=== PATIENT | female | born 1990 | race Caucasian/White ===

== ENCOUNTER 2018-06-08 15:58 | Emergency (ER) | payer OTHER, SELFPAY ==
[2018-06-08 17:24] VITALS: BP 144/83; PULSE 119; RESP 20; TEMP 38.1; O2SAT 98; BMI 31.5
--- NOTE | 2018-06-08 17:39 | HMH.EDUTC ---
[facility] [place] Clinical Impression: Influenza A Disposition: Home, Self-Care Condition on Discharge: Good Instructions: Influenza Additional Instructions: Drink plenty of fluids. Take tylenol or ibuprofen for pain. I sent in a prescription for zofran, just in case you have nausea and vomiting. Off work until you are free of a fever for 24 hours. Go to your regular doctor if you are not getting better in 48 hours or so. GO TO THE ER FOR ANY WORSENING OR LIFE THREATENING SYMPTOMS Prescriptions: Ondansetron [Zofran 4mg ODT] 4 mg PO Q8HP PRN #20 tab.rapdis PRN Reason: Nausea Oseltamivir Phosphate [Tamiflu 75mg Capsule] 75 mg PO BID #10 capsule Referrals: Gemini Martines [Primary Care Provider] - Forms: Work/School Release Time of Disposition: 17:49 Medical Decision Making - Medical Records Medical records reviewed: No: I reviewed the patient's medical records. - Shaquille Inquiry Pt receiving controlled substance: No Shaquille was queried for this patient: No Vital Signs: 06/08/18 17:24 06/08/18 17:59 Temperature 100.6 F H 100.4 F H Temperature Source Oral Oral Pulse Rate 114 H Pulse Rate [Right Radial] 119 H Respiratory Rate 20 22 Blood Pressure 134/86 Blood Pressure [Right Arm] 144/83 H Blood Pressure Mean [Right Arm] 103 Blood Pressure Source Automatic Cuff Blood Pressure Position Sitting 02 Sat by Pulse Oximetry 98 Oxygen Delivery Method Room Air Room Air - Lab Data Lab results reviewed: Yes: I reviewed the patient's lab results. Lab Results 06/08/18 17:17: Influenza Type A Ag Positive A, Influenza Type B Ag Negative 06/08/18 17:24: Strep Scn [facility] Negative Orders (Tests/Meds): ED MEDICATIONS Discontinued Medications Generic Name Dose Route Start Last Admin Trade Name Freq PRN Reason Stop Dose Admin Ibuprofen 600 mg 06/08/18 17:45 Motrin 600mg Tablet PO 06/08/18 17:46 ONCE ONE Oseltamivir Phosphate 75 mg 06/08/18 17:43 Tamiflu 75mg Capsule PO 06/08/18 17:44 ONCE ONE ORDERS Category Date Time Status Strep Screen Confirmation Stat Micro 06/08/18 17:24 Received [facility] [place] - General Stated complaint: flu symptoms Time Seen by Provider: 06/08/18 17:25 Mode of Arrival: Family Vehicle Source of Information: Patient Limitations: No Limitations Description of Symptoms (Recalled from Triage Doc. by RN): PT C/O FEVER, COUGH,SORE THROAT , BODYACHES, CHILLS SINCE YESTERDAY. HEENT Symptoms (Recalled from RN notes): Yes (FEVER SORE THROAT, BODYACHES CHILLS) Resp Symptoms (Recalled from RN notes): Yes (COUGH) Skin Symptoms (Recalled from RN notes): No MS Symptoms (Recalled from RN notes): No Functional Status (Recalled from RN notes): NA - History of Present Illness Provider Complaint: She started having fever, chills and body aches yesterday morning. - Related Data Previous Rx's Medication Instructions Recorded Ondansetron [Zofran 4mg ODT] 4 mg PO Q8HP PRN #20 tab.rapdis 06/08/18 Oseltamivir Phosphate [Tamiflu 75 mg PO BID #10 capsule 06/08/18 75mg Capsule] Allergies Allergy/AdvReac Type Severity Reaction Status Date / Time No Known Allergies Allergy Verified 06/08/18 17:24 - Worker's Comp Is this a Worker's Comp case?: No [facility] History - Hepatitis A Screen Drug use history?: No High risk sexual behaviors?: No History of sexually transmitted infection?: No Currently employed?: No Childcare worker?: No Do you have indoor plumbing?: Yes Do you have electricity?: Yes Attestation statement:: This patient has been screened for Hepatitis A risk factors. I have reviewed the patient's past medical history: Yes Medical History: Denies:: Cancer, Diabetes Mellitus Type 1, Diabetes Mellitus Type 2, MRSA Amputation: No - Social History Smoking Status: Current every day smoker Tobacco Type: cigarettes # Packs/Day (cigarette
--- NOTE | 2018-06-08 17:42 | ED_ITS ---
[facility] – [place] Disposition Clinical Impression: Influenza A Disposition: Home, Self-Care Condition on Discharge: Good Instructions: Influenza Additional Instructions: Drink plenty of fluids. Take tylenol or ibuprofen for pain. I sent in a prescription for zofran, just in case you have nausea and vomiting. Off work until you are free of a fever for 24 hours. Go to your regular doctor if you are not getting better in 48 hours or so. GO TO THE ER FOR ANY WORSENING OR LIFE THREATENING SYMPTOMS Prescriptions: Ondansetron [Zofran 4mg ODT] 4 mg PO Q8HP PRN #20 tab.rapdis PRN Reason: Nausea Oseltamivir Phosphate [Tamiflu 75mg Capsule] 75 mg PO BID #10 capsule Referrals: Gemini Martines [Primary Care Provider] - Forms: Work/School Release Time of Disposition: 17:49 Medical Decision Making - Medical Records Medical records reviewed: No: I reviewed the patient's medical records. - Shaquille Inquiry Pt receiving controlled substance: No Shaquille was queried for this patient: No Vital Signs: 06/08/18 17:24 06/08/18 17:59 Temperature 100.6 F H 100.4 F H Temperature Source Oral Oral Pulse Rate 114 H Pulse Rate [Right Radial] 119 H Respiratory Rate 20 22 Blood Pressure 134/86 Blood Pressure [Right Arm] 144/83 H Blood Pressure Mean [Right Arm] 103 Blood Pressure Source Automatic Cuff Blood Pressure Position Sitting 02 Sat by Pulse Oximetry 98 Oxygen Delivery Method Room Air Room Air - Lab Data Lab results reviewed: Yes: I reviewed the patient's lab results. Lab Results 06/08/18 17:17: Influenza Type A Ag Positive A, Influenza Type B Ag Negative 06/08/18 17:24: Strep Scn [facility] Negative Orders (Tests/Meds): ED MEDICATIONS Discontinued Medications Generic Name Dose Route Start Last Admin Trade Name Freq PRN Reason Stop Dose Admin Ibuprofen 600 mg 06/08/18 17:45 Motrin 600mg Tablet PO 06/08/18 17:46 ONCE ONE Oseltamivir Phosphate 75 mg 06/08/18 17:43 Tamiflu 75mg Capsule PO 06/08/18 17:44 ONCE ONE ORDERS Category Date Time Status Strep Screen Confirmation Stat Micro 06/08/18 17:24 Received [facility] [place] HPI - General Stated complaint: flu symptoms Time Seen by Provider: 06/08/18 17:25 Mode of Arrival: Family Vehicle Source of Information: Patient Limitations: No Limitations Description of Symptoms (Recalled from Triage Doc. by RN): PT C/O FEVER, COUGH,SORE THROAT , BODYACHES, CHILLS SINCE YESTERDAY. HEENT Symptoms (Recalled from RN notes): Yes (FEVER SORE THROAT, BODYACHES CHILLS) Resp Symptoms (Recalled from RN notes): Yes (COUGH) Skin Symptoms (Recalled from RN notes): No MS Symptoms (Recalled from RN notes): No Functional Status (Recalled from RN notes): NA - History of Present Illness Provider Complaint: She started having fever, chills and body aches yesterday morning. - Related Data Previous Rx's Medication Instructions Recorded Ondansetron [Zofran 4mg ODT
[2018-06-08 17:46] LABS: UTC Strep Screen (Rapid) Negative (Negative)
[2018-06-08 17:47] LABS: UTC Influenza A Antigen Positive (Negative); UTC Influenza B Antigen Negative (Negative)
[2018-06-08 17:59] VITALS: BP 134/86; PULSE 114; RESP 22; TEMP 38; O2SAT 99
== END 2018-06-08 18:01 | disposition home or self-care (01) ==
PROVIDERS: Emergency Provider Nurse Practitioner Family; PCP Physician Assistant
DX: J10.1 Influenza due to other identified influenza virus with other respiratory manifestations (principal)
CPT/HCPCS: 87804; 87880; 99202